=== PATIENT | male | born 1940 | race Caucasian/White ===

== ENCOUNTER 2018-09-11 12:28 | Emergency (ER) | payer MEDICARE, BC ==
[~2018-09-11] VITALS: Ht 180.3 cm; Wt 88.5 kg
[2018-09-11 13:21] LABS: BASOPHILS ABSOLUTE AUTO 0.04 K/mm3 (0.00-0.23); BASOPHILS PERCENT AUTO 1 % (0-2); EOSINOPHILS PERCENT AUTO 2 % (0-6); Hematocrit 40.4 % (37.0-53.0); Hemoglobin 13.4 g/dL (13.5-17.5); IMMATURE GRAN ABSOLUTE AUTO 0.01 K/mm3 (0.00-0.10); IMMATURE GRAN PERCENT AUTO 0 % (0-1); LYMPHOCYTES ABSOLUTE AUTO 1.61 K/mm3 (0.84-5.20); LYMPHOCYTES PERCENT AUTO 26 % (21-46); MONOCYTES ABSOLUTE AUTO 0.56 K/mm3 (0.16-1.47); MONOCYTES PERCENT AUTO 9 % (4-13); Mean Corpuscular HGB Conc 33.2 g/dL (31.5-36.5); Mean Corpuscular Volume 96 fL (80-100); Mean Platelet Volume 10.3 fL (9.1-12.4); NEUTROPHILS ABSOLUTE AUTO 3.82 K/mm3 (1.96-9.15); NEUTROPHILS PERCENT AUTO 62 % (41-73); Platelet Count 238 K/mm3 (150-400); RDW Coefficient Variation 14.3 % (11.7-14.2); RDW Standard Deviation 50.3 fL (35.1-46.3); Red Blood Cell Count 4.19 M/mm3 (4.30-5.90); White Blood Cell Count 6.14 K/mm3 (4.00-11.30)
[2018-09-11 13:42] LABS: Alanine Aminotransfer (ALT/SGP 21 U/L (12-78); Albumin, Blood 3.6 g/dL (3.4-5.0); Alk Phos 83 U/L (50-136); Anion Gap 9 mmol/L (6-16); Aspartate Aminotrans (AST/SGOT 24 U/L (12-37); Bilirubin, Total 0.5 mg/dL (0.1-1.0); Blood Urea Nitrogen 23 mg/dL (8-24); Bun/Creatinine Ratio 22.1 (12.0-20.0); CO2, Blood 24 mmol/L (21-32); Calcium, Blood 9.3 mg/dL (8.5-10.1); Chloride, Blood 108 mmol/L (98-108); Creatinine, Blood 1.04 mg/dL (0.60-1.20); Globulin, Blood 3.6 g/dL (2.2-4.0); Glomerular Filtration Rate >60 (60-); Glucose, Blood 107 mg/dL (70-99); Potassium, Blood 4.1 mmol/L (3.5-5.5); Sodium, Blood 141 mmol/L (136-145); Total Protein, Blood 7.2 g/dL (6.4-8.2); Troponin I <0.015 ng/mL (0.000-0.040)
[2018-09-11] MEDS ORDERED: MECL12.5 PO (16:30)
== END 2018-09-11 16:51 | disposition home or self-care (01) ==
LOC: ER 12:28
PROVIDERS: Emergency Medicine
DX: E87.8 Other disorders of electrolyte and fluid balance, not elsewhere classified (principal); Z88.8 Allergy status to other drugs, medicaments and biological substances
CPT/HCPCS: 36415; 70450; 80053; 84484; 85025; 93005; 93010; 99284-25

== ENCOUNTER 2024-01-26 06:43 | Day surgery (SDC) | payer BC, MEDICARE ==
[~2024-01-26] VITALS: Ht 170.2 cm; Wt 71.9 kg
[2024-01-26] VITALS (16 sets, daily range): BP systolic 89–159; BP diastolic 46–99
[~2024-01-26 06:43] MED LIST: DOXY100 PO; FLONASE ALLERG9.9 ML; MECL12.5 PO; PRED20 PO; ZYRTEC10 M2 PO
[2024-01-26] MEDS ORDERED: Lactated Ringer's 1,000 ML IV SCH ×2 (07:00→10:55)
[2024-01-26] MEDS ORDERED: Ropivacaine 0.5% HCl/Pf 123.125 MG,EPINEPHrine HCL 0.25 MG,Ketorolac Tromethamine 15 MG... INFIL SCH (07:00)
[2024-01-26] MEDS ORDERED: Chlorhexidine Mouth Care 15 ML UDC MT SCH (07:00)
[2024-01-26] MEDS ORDERED: Acetaminophen 500 MG Tab PO SCH ×2 (07:00→16:00)
[2024-01-26] MEDS ORDERED: OxyCODONE HCL 10 MG TABCR PO SCH (07:00)
[2024-01-26] MEDS ORDERED: CeFAZolin Sodium 2,000 MG in NS 100 ML IV SCH ×2 (07:00→17:00)
[2024-01-26] MEDS ORDERED: Tranexamic Acid 100 ML IV SCH (07:02)
--- NOTE | 2024-01-26 07:13 | NUR ---
Ambulatory in Day SurgeryPre-Op teaching done. Pt verbalizes understanding. History, Chart, Medications and Allergies reviewed before start of procedure.Patient confirms NPO status and agrees with scheduled surgery.
[2024-01-26] MEDS ORDERED: ASCORBIC ACID500 MG (07:35)
[2024-01-26] MEDS ORDERED: ADRENAL (07:36)
[2024-01-26] MEDS ORDERED: FentaNYL Citrate 50 MCG/ML 2 ML Injection ONE (08:32)
[2024-01-26] MEDS ORDERED: propofoL 150 ML IV ONE (08:34)
[2024-01-26] MEDS ORDERED: Phenylephrine HCl 100 MCG/ML-NS 10MLSYR (1MG/10ML) ONE (09:30)
[2024-01-26] MEDS ORDERED: Phenylephrine HCl 10mg/ml 1 ml Vial ONE (09:47)
[2024-01-26] MEDS ORDERED: Promethazine HCl 25 MG Tab PO PRN (10:50)
[2024-01-26] MEDS ORDERED: OxyCODONE HCL 5 MG TAB PO PRN ×2 (10:50→10:55)
[2024-01-26] MEDS ORDERED: Magnesium Hydroxide Conc 10 ML UDC PO PRN (10:55)
[2024-01-26] MEDS ORDERED: HYDROmorphone HCl/Pf 1MG SYR IV PRN (10:55)
[2024-01-26] MEDS ORDERED: Metoclopramide HCl 5MG / ML 2ML Vial IV PRN (10:55)
[2024-01-26] MEDS ORDERED: Ondansetron HCl 2 MG / ML 2ML Vial IV PRN (10:55)
[2024-01-26] MEDS ORDERED: Bisacodyl 10 MG Supp PR PRN (11:00)
[2024-01-26] MEDS ORDERED: DiphenhydrAMINE HCL 25 MG Cap PO PRN (11:00)
[2024-01-26] MEDS ORDERED: Ketorolac Tromethamine 15mg Vial IV SCH (12:00)
--- NOTE | 2024-01-26 12:22 | NUR ---
PT ARRIVED TO THE ROOM AT 1145. PT DENIES PAIN. PT IS UNABLE TO MOVE OR FEEL BLE R/T SPINAL ANESTHESIA. PULSES FAINT BUT PALPABLE. DRESSING C/D/I. FAMILY PRESENT FOR SUPPORT. PT PROVIDED WITH CALL LIGHT AND EDUCATED TO USE.
--- NOTE | 2024-01-26 18:32 | NUR ---
SHIFT SUMMARY PT IS POD#0. PT WORKED WITH THERAPY BUT DID NOT CLEAR, PT STATES HE WOULD LIKE TO DISCHARGE THIS EVENING, WAITING FOR REPLY FROM DR. OCONNELL REGARDING DISHCARGE. PAIN MANAGED WITH TYLENOL. PT TOLERATING PO AND HAS VOIDED. FAMILY PRESENT FOR SUPPORT.
--- NOTE | 2024-01-26 19:29 | NUR ---
PT IS REQUESTING TO DISCHARGE HOME AMA. DR. OCONNELL NOTIFIED OF PT'S WISH TO DISCHARGE HOME BUT ALSO THAT HE DID NOT CLEAR PHYSICAL THERAPY. DR. OCONNELL WOULD LIKE PT TO STAY AND HAVE FURTHER PHYSICAL THERAPY TOMORROW. THIS RN REQUESTED THAT DR. OCONNELL CALL PT AND PROVIDE INFORMED CONSENT REGARDINGS RISKS VS. BENEFITS OF AMA DISCHARGE. THIS RN PROVIDED EDUCATION THAT PT MAY HAVE INCREASED RISK OF FALLS AND WILL BE DISCHARGING HOME WITHOUT PROPER CARE INSTRUCTIONS SINCE THEY CANNOT BE PRINTED FOR AMA DISCHARGE. PT AND FAMILY VERBALIZED UNDERSTANDING. BEDSIDE REPORT GIVEN TO JESÚS ALFARO.
--- NOTE | 2024-01-26 19:37 | NUR ---
PT HAS DECIDED TO REMAIN OVERNIGHT IN THE HOSPITAL PER RECOMMENDATION FROM DR. OCONNELL.
[2024-01-26] MEDS ORDERED: Docusate Sodium 100 MG Cap PO SCH (21:00)
[2024-01-27 00:13] VITALS: BP 113/57
[2024-01-27 04:52] VITALS: BP 141/61
[2024-01-27 05:29] LABS: BASOPHILS ABSOLUTE AUTO 0.04 K/mm3 (0.00-0.23); BASOPHILS PERCENT AUTO 0 % (0-2); EOSINOPHILS ABSOLUTE AUTO 0.46 K/mm3 (0.00-0.68); EOSINOPHILS PERCENT AUTO 5 % (0-6); Hematocrit 33.1 % (37.0-53.0); Hemoglobin 10.9 g/dL (13.5-17.5); IMMATURE GRAN ABSOLUTE AUTO 0.01 K/mm3 (0.00-0.10); IMMATURE GRAN PERCENT AUTO 0 % (0-1); LYMPHOCYTES ABSOLUTE AUTO 2.01 K/mm3 (0.84-5.20); LYMPHOCYTES PERCENT AUTO 22 % (21-46); MONOCYTES ABSOLUTE AUTO 0.76 K/mm3 (0.16-1.47); MONOCYTES PERCENT AUTO 8 % (4-13); Mean Corpuscular HGB 31.7 pg (26.0-34.0); Mean Corpuscular HGB Conc 32.9 g/dL (31.5-36.5); Mean Corpuscular Volume 96 fL (80-100); Mean Platelet Volume 10.5 fL (9.1-12.4); NEUTROPHILS ABSOLUTE AUTO 5.79 K/mm3 (1.96-9.15); NEUTROPHILS PERCENT AUTO 64 % (41-73); Platelet Count 206 K/mm3 (150-400); RDW Coefficient Variation 14.2 % (11.7-14.2); RDW Standard Deviation 50.2 fL (35.1-46.3); Red Blood Cell Count 3.44 M/mm3 (4.30-5.90); White Blood Cell Count 9.07 K/mm3 (4.00-11.30)
--- NOTE | 2024-01-27 05:31 | NUR ---
SHIFT SUMMARY NOC. PT POD 1 FOR ELECTIVE RIGHT TOTAL KNEE. PT A/O X4. AQUACEL AND LA WRAP C/D/I. PT VOIDING URINE, TOLERATING PO. PT FAMILY AT BEDSIDE T/O THE NIGHT. PT DENIES PAIN AND TOOK SCHEDULED TYLENOL ORDERED. PT RESTED WITH EYES CLOSED AND CALL LIGHT IN REACH.
[2024-01-27 05:59] LABS: Calcium, Blood 8.7 mg/dL (8.5-10.1); Creatinine, Blood 1.36 mg/dL (0.60-1.20); Magnesium, Blood 2.1 mg/dL (1.6-2.4); Potassium, Blood 5.2 mmol/L (3.5-5.5)
[2024-01-27 07:22] VITALS: BP 142/65
[2024-01-27] MEDS ORDERED: ASPI81CH PO (07:40)
[2024-01-27] MEDS ORDERED: Aspirin 81 MG Chew PO SCH (09:00)
--- NOTE | 2024-01-27 10:53 | NUR ---
DISCHARGE SUMMARY POD1 R TKA, A/OX4, VSS, TOLERATING PO, DENIES PAIN, AMBULATES WELL WITH MINIMAL SBA, VOIDING INDEPENDENTLY, IV REMOVED JUST PRIOR TO DISCHARGE, JAMES C/D/I. DISCUSSED DISCHARGE INSTRUCTIONS WITH HIM AND HIS DAUGHTER INCLUDING HOME CARE, MEDICATIONS, AND FOLLOW UP APPOINTMENTS. NO QUESTIONS AT THIS TIME. PACKED UP ALL PERSONAL BELONGINGS AND ESCORTED OUT TO PRIVATE [employer] GO HOME.
== END 2024-01-27 10:46 | disposition home or self-care (01) ==
LOC: SURS 06:43 → ORSCMMR 06:43 → ORD 08:15 → SURS 10:01 → ORSCMMR 01-27 10:46
PROVIDERS: Orthopaedic Surgery
PROC: 0SRC0JA Replacement of Right Knee Joint with Synthetic Substitute, Uncemented, Open Approach (ICD-10-PCS; principal; 2024-01-26 08:15)
DX: M17.11 Unilateral primary osteoarthritis, right knee (principal)
CPT/HCPCS: 36415; 73560-RT; 80048; 83735; 85025; 97110; 97116; 97162; A9270; C1713; C1776; J0690; J2371; J2704; J3010; J7120

== ENCOUNTER 2025-02-23 21:55 | Inpatient (IN) | payer MEDICARE ==
[~2025-02-23] VITALS: Ht 177.8 cm; Wt 68.1 kg
[~2025-02-23 21:55] MED LIST changes: +ADRENAL; +ASCORBIC ACID500 MG; +ASPI81CH PO
[2025-02-23 22:30] LABS: BASOPHILS ABSOLUTE AUTO 0.03 K/mm3 (0.00-0.23); BASOPHILS PERCENT AUTO 0 % (0-2); EOSINOPHILS ABSOLUTE AUTO 0.00 K/mm3 (0.00-0.68); EOSINOPHILS PERCENT AUTO 0 % (0-6); Hematocrit 30.7 % (37.0-53.0); Hemoglobin 10.1 g/dL (13.5-17.5); IMMATURE GRAN ABSOLUTE AUTO 0.03 K/mm3 (0.00-0.10); IMMATURE GRAN PERCENT AUTO 0 % (0-1); LYMPHOCYTES ABSOLUTE AUTO 0.34 K/mm3 (0.84-5.20); LYMPHOCYTES PERCENT AUTO 5 % (21-46); MONOCYTES ABSOLUTE AUTO 0.68 K/mm3 (0.16-1.47); MONOCYTES PERCENT AUTO 10 % (4-13); Mean Corpuscular HGB Conc 32.9 g/dL (31.5-36.5); Mean Corpuscular Volume 95 fL (80-100); NEUTROPHILS ABSOLUTE AUTO 5.93 K/mm3 (1.96-9.15); NEUTROPHILS PERCENT AUTO 85 % (41-73); NRBC ABSOLUTE 0.00 K/mm3 (0.00-0.02); NRBC Auto 0.0 /100 WBC (0.0-0.2); Platelet Count 172 K/mm3 (150-400); RDW Coefficient Variation 14.8 % (11.7-14.2); RDW Standard Deviation 51.4 fL (35.1-46.3)
[2025-02-23 22:48] LABS: Alanine Aminotransfer (ALT/SGP 11.0 U/L (12-78); Albumin, Blood 2.9 g/dL (3.4-5.0); Albumin/Globulin Ratio 0.9 (0.8-1.8); Anion Gap 9.0 mmol/L (3-11); Aspartate Aminotrans (AST/SGOT 20.0 U/L (12-37); Bilirubin, Total 0.6 mg/dL (0.1-1.0); Blood Urea Nitrogen 26.0 mg/dL (8-24); CO2, Blood 24.0 mmol/L (21-32); Calcium, Blood 8.2 mg/dL (8.5-10.1); Chloride, Blood 106.0 mmol/L (98-108); Creatinine, Blood 1.55 mg/dL (0.60-1.20); Globulin, Blood 3.2 g/dL (2.2-4.0); Glucose, Blood 123.0 mg/dL (70-99); Potassium, Blood 4.2 mmol/L (3.5-5.5); Sodium, Blood 135.0 mmol/L (136-145); Total Protein, Blood 6.1 g/dL (6.4-8.2)
[2025-02-23] MEDS ORDERED: NS 1,000 ML IV SCH (23:20)
[2025-02-24 00:48] LABS: Source, Urine Voided
[2025-02-24 00:52] LABS: Bilirubin, Urine Neg (Neg); Glucose Qualitative, Urine Neg (Neg); Ketones, Urine 1+ (Neg); Leukocyte Esterase, Urine Neg (Neg); Protein, Urine 2+ (Neg); Specific Gravity, Urine 1.020 (1.003-1.022); Urobilinogen, Urine NORM (Normal)
[2025-02-24 01:07] LABS: Color, Urine Yellow (P-Yellow); White Blood Cells, Urine Not Seen /hpf (0-5)
[2025-02-24] MEDS ORDERED: CefTRIAXone Sodium 1,000 MG in NS 100 ML IV ONE (01:15)
[2025-02-24 01:29] LABS: Influenza A, PCR NEGATIVE (NEGATIVE); Influenza B, PCR NEGATIVE (NEGATIVE); Resp Syncytial Virus, PCR NEGATIVE (NEGATIVE); SARS-Cov-2 (COVID-19) PCR, MMC NEGATIVE (NEGATIVE)
[2025-02-24] MEDS ORDERED: NS 1,000 ML IV ONE (01:45)
[2025-02-24] MEDS ORDERED: Ondansetron HCl 2 MG / ML 2ML Vial IV PRN (01:45)
[2025-02-24 05:48] VITALS: BP 121/60
--- NOTE | 2025-02-24 06:38 | NUR ---
SHIFT SUMMARY: PATIENT ARRIVED FROM ER TODAY AROUND 0540. PATIENT IS A 1-2P ASSIST WITH AMBUATION DUE TO UNSTEADY GAIT FROM THE BATHROOM TO THE HOSPITAL BED. PATIENT IS A&OX4 BUT IS [place]. IS AT BEDSIDE CURRENTLY. SHEEP FARMER GAVI SAID PATIENT IS SINUS RHYTHM IN THE 70'S BPM. OTHER VITALS ARE STABLE AND IS ON ROOM AIR WITH >90% SPO2. PATIENT DENIES PAIN AT THIS TIME. PATIENT IS NPO WELL AT THIS TIME. HE IS CURRENTLY LAYING IN BED WITH CALL LIGHT IN REACH.
[2025-02-24 07:24] VITALS: BP 115/62
[2025-02-24 08:45] LABS: BASOPHILS ABSOLUTE AUTO 0.03 K/mm3 (0.00-0.23); BASOPHILS PERCENT AUTO 1 % (0-2); EOSINOPHILS ABSOLUTE AUTO 0.01 K/mm3 (0.00-0.68); EOSINOPHILS PERCENT AUTO 0 % (0-6); Hematocrit 33.0 % (37.0-53.0); Hemoglobin 10.9 g/dL (13.5-17.5); IMMATURE GRAN ABSOLUTE AUTO 0.01 K/mm3 (0.00-0.10); IMMATURE GRAN PERCENT AUTO 0 % (0-1); LYMPHOCYTES ABSOLUTE AUTO 0.61 K/mm3 (0.84-5.20); LYMPHOCYTES PERCENT AUTO 10 % (21-46); MONOCYTES ABSOLUTE AUTO 0.70 K/mm3 (0.16-1.47); MONOCYTES PERCENT AUTO 11 % (4-13); Mean Corpuscular HGB Conc 33.0 g/dL (31.5-36.5); Mean Corpuscular Volume 98 fL (80-100); NEUTROPHILS ABSOLUTE AUTO 4.90 K/mm3 (1.96-9.15); NEUTROPHILS PERCENT AUTO 78 % (41-73); NRBC ABSOLUTE 0.00 K/mm3 (0.00-0.02); NRBC Auto 0.0 /100 WBC (0.0-0.2); Platelet Count 168 K/mm3 (150-400); RDW Coefficient Variation 15.3 % (11.7-14.2); RDW Standard Deviation 55.1 fL (35.1-46.3)
[2025-02-24] MEDS ORDERED: Lactobacil 2-S.Thermo-Bifido 1 1 Cap PO SCH (09:00)
[2025-02-24] MEDS ORDERED: Enoxaparin 40 MG/0.4 ML SYR SC SCH (09:00)
[2025-02-24 09:10] LABS: Alanine Aminotransfer (ALT/SGP 12.0 U/L (12-78); Albumin, Blood 2.9 g/dL (3.4-5.0); Albumin/Globulin Ratio 0.8 (0.8-1.8); Anion Gap 9.0 mmol/L (3-11); Aspartate Aminotrans (AST/SGOT 22.0 U/L (12-37); Bilirubin, Total 0.5 mg/dL (0.1-1.0); Blood Urea Nitrogen 26.0 mg/dL (8-24); CO2, Blood 25.0 mmol/L (21-32); Calcium, Blood 8.3 mg/dL (8.5-10.1); Chloride, Blood 107.0 mmol/L (98-108); Creatinine, Blood 1.55 mg/dL (0.60-1.20); Globulin, Blood 3.5 g/dL (2.2-4.0); Glucose, Blood 92.0 mg/dL (70-99); Potassium, Blood 3.9 mmol/L (3.5-5.5); Sodium, Blood 137.0 mmol/L (136-145); Total Protein, Blood 6.4 g/dL (6.4-8.2)
[2025-02-24 14:58] VITALS: BP 117/56
[2025-02-24 17:04] LABS: Ferritin, Serum 351.0 ng/mL (26-388); Total Iron Binding Capacity 173.0 ug/dL (250-450)
[2025-02-24] MEDS ORDERED: NS 250 ML IV PRN (19:55)
[2025-02-24 20:03] VITALS: BP 123/54
[2025-02-24] MEDS ORDERED: CefTRIAXone Sodium 1,000 MG in NS 100 ML IV SCH (21:00)
[2025-02-24 21:54] VITALS: BP 132/74
[2025-02-24] MEDS ORDERED: Metoclopramide HCl 5MG / ML 2ML Vial IV PRN (22:20)
[2025-02-24 23:55] VITALS: BP 121/99
[2025-02-25 04:03] VITALS: BP 125/52
[2025-02-25 05:30] LABS: Hematocrit 28.2 % (37.0-53.0); Hemoglobin 9.5 g/dL (13.5-17.5); Mean Corpuscular HGB Conc 33.7 g/dL (31.5-36.5); Mean Corpuscular Volume 96 fL (80-100); NRBC ABSOLUTE 0.00 K/mm3 (0.00-0.02); NRBC Auto 0.0 /100 WBC (0.0-0.2); Platelet Count 152 K/mm3 (150-400); RDW Coefficient Variation 15.1 % (11.7-14.2); RDW Standard Deviation 53.1 fL (35.1-46.3)
--- NOTE | 2025-02-25 05:33 | NUR ---
NO ACUTE CHANGES WITH PATIENT DURING SHIFT. PATIENT IS ALERT AND ORIENTED X 4 AND ABLE TO MAKE NEEDS KNOWN. PATIENT RECEIEVED IV ANTIBIOTICS. PATIENT IS ON ROOM AIR AND ON TELE- RUNNING SINUS TACH WITH PAC'S. PATIENT IS A SBA TO THE BATHROOM. PATIENT COMPLAINED OF NAUSEA DURING SHIFT- ORDER FOR REGLAN WAS OBTAINED. PATIENT REQUESTED SOMETHING FOR SLEEP- 25 MG OF TRAZADONE WAS ORDERED. BED IS IN LOW POSITION WITH WHEELS LOCKED. CALL LIGHT WITHIN REACH
[2025-02-25 05:54] LABS: BAND PERCENT MAN 1 % (0-8); BASOPHILS ABSOLUTE MAN 0.00 K/mm3 (0.00-0.23); BASOPHILS PERCENT MAN 0 % (0-2); EOSINOPHILS ABSOLUTE MAN 0.00 K/mm3 (0.00-0.68); EOSINOPHILS PERCENT MAN 0 % (0-6); LYMPHOCYTES ABSOLUTE MAN 0.84 K/mm3 (0.84-5.20); LYMPHOCYTES PERCENT MAN 19 % (21-46); MONOCYTES ABSOLUTE MAN 0.93 K/mm3 (0.16-1.47); MONOCYTES PERCENT MAN 21 % (4-13); NEUTROPHILS ABSOLUTE MAN 2.65 K/mm3 (1.96-9.15); SEG NEUTROPHILS PERCENT MAN 59 % (41-73)
[2025-02-25 06:12] LABS: Anion Gap 7.0 mmol/L (3-11); Blood Urea Nitrogen 37.0 mg/dL (8-24); CO2, Blood 25.0 mmol/L (21-32); Calcium, Blood 8.2 mg/dL (8.5-10.1); Chloride, Blood 106.0 mmol/L (98-108); Creatinine, Blood 1.55 mg/dL (0.60-1.20); Glucose, Blood 116.0 mg/dL (70-99); Potassium, Blood 4.3 mmol/L (3.5-5.5); Sodium, Blood 134.0 mmol/L (136-145)
[2025-02-25 07:40] VITALS: BP 112/55
[2025-02-25] MEDS ORDERED: Sod Ferric Gluc Complx/Sucrose 125 MG in NS 100 ML IV SCH (09:38)
[2025-02-25 11:55] VITALS: BP 125/61
[2025-02-25] MEDS ORDERED: AZIT250 PO (13:48)
[2025-02-25] MEDS ORDERED: CEFP200 PO (13:49)
[2025-02-25] MEDS ORDERED: FERSU300 PO (13:50)
[2025-02-25] MEDS ORDERED: VISBIOME 112.51 EACH PO (13:50)
[2025-02-25] MEDS ORDERED: ONDA4ODT MM (13:52)
--- NOTE | 2025-02-25 14:14 | NUR ---
DSICHARGE INSTRUCTIONS TO PATIENT AND , BOTH STATED UNDERSTANDING, BOTH DENIED FURTHER QUESTIONS FOR DISCHARGE NEEDS OR INSTRUCTIONS, PLEASANT TO CARE
== END 2025-02-25 14:19 | disposition home or self-care (01) | DRG 193 ==
LOC: ER 21:55 → ERHOLD 21:56 → ER 21:56 → ERHOLD 21:56 → MEDS 21:56 → ERHOLD 21:57 → MEDS 02-24 05:27
PROVIDERS: Emergency Medicine; Student in an Organized Health Care Education/Training Program; ADMIT Internal Medicine
DX: J18.9 Pneumonia, unspecified organism (principal); I21.4 Non-ST elevation (NSTEMI) myocardial infarction; N18.32 Chronic kidney disease, stage 3b; R63.4 Abnormal weight loss; I08.3 Combined rheumatic disorders of mitral, aortic and tricuspid valves; I27.20 Pulmonary hypertension, unspecified; D50.9 Iron deficiency anemia, unspecified; J84.10 Pulmonary fibrosis, unspecified; R79.89 Other specified abnormal findings of blood chemistry; Z79.82 Long term (current) use of aspirin; Z68.23 Body mass index [BMI] 23.0-23.9, adult
CPT/HCPCS: 36415; 71045; 80048; 80053; 81001; 82607; 82728; 82746; 83540; 83550; 83605; 83880; 84484; 85025; 87040; 87637; 92610; 93005; 93010; 93306; 94664; 96361; 96374; 96375; 99285-25; A9270; G0378; J0456; J0696; J1650; J2405; J2765; J2916; J7030; J7050

== ENCOUNTER → 2025-03-10 | Outpatient (CLI) | payer MEDICARE ==
[~2025-03-10] MED LIST changes: +AZIT250 PO; +CEFP200 PO; +FERSU300 PO; +ONDA4ODT MM; +VISBIOME 112.51 EACH PO
[2025-03-10 12:50] LABS: BASOPHILS ABSOLUTE AUTO 0.04 K/mm3 (0.00-0.23); BASOPHILS PERCENT AUTO 0 % (0-2); EOSINOPHILS ABSOLUTE AUTO 0.04 K/mm3 (0.00-0.68); EOSINOPHILS PERCENT AUTO 0 % (0-6); Hematocrit 34.5 % (37.0-53.0); Hemoglobin 11.4 g/dL (13.5-17.5); IMMATURE GRAN ABSOLUTE AUTO 0.05 K/mm3 (0.00-0.10); IMMATURE GRAN PERCENT AUTO 1 % (0-1); LYMPHOCYTES ABSOLUTE AUTO 1.57 K/mm3 (0.84-5.20); LYMPHOCYTES PERCENT AUTO 17 % (21-46); MONOCYTES ABSOLUTE AUTO 0.80 K/mm3 (0.16-1.47); MONOCYTES PERCENT AUTO 9 % (4-13); Mean Corpuscular HGB Conc 33.0 g/dL (31.5-36.5); Mean Corpuscular Volume 99 fL (80-100); NEUTROPHILS ABSOLUTE AUTO 6.55 K/mm3 (1.96-9.15); NEUTROPHILS PERCENT AUTO 73 % (41-73); NRBC ABSOLUTE 0.04 K/mm3 (0.00-0.02); NRBC Auto 0.4 /100 WBC (0.0-0.2); Platelet Count 240 K/mm3 (150-400); RDW Coefficient Variation 19.7 % (11.7-14.2); RDW Standard Deviation 67.9 fL (35.1-46.3)
[2025-03-10 13:01] LABS: Alanine Aminotransfer (ALT/SGP 68.0 U/L (12-78); Albumin, Blood 3.4 g/dL (3.4-5.0); Albumin/Globulin Ratio 1.0 (0.8-1.8); Anion Gap 14.0 mmol/L (3-11); Aspartate Aminotrans (AST/SGOT 77.0 U/L (12-37); Bilirubin, Total 1.5 mg/dL (0.1-1.0); Blood Urea Nitrogen 39.0 mg/dL (8-24); CO2, Blood 25.0 mmol/L (21-32); Calcium, Blood 8.8 mg/dL (8.5-10.1); Chloride, Blood 104.0 mmol/L (98-108); Creatinine, Blood 1.98 mg/dL (0.60-1.20); Globulin, Blood 3.4 g/dL (2.2-4.0); Glucose, Blood 95.0 mg/dL (70-99); Potassium, Blood 4.3 mmol/L (3.5-5.5); Sodium, Blood 139.0 mmol/L (136-145); Total Protein, Blood 6.8 g/dL (6.4-8.2)
== END | disposition home or self-care (01) ==
LOC: LAB SHORT 12:44 → LAB 12:44
PROVIDERS: Physician Assistant
DX: R11.2 Nausea with vomiting, unspecified (principal); R10.9 Unspecified abdominal pain; R74.8 Abnormal levels of other serum enzymes
CPT/HCPCS: 80053; 82977; 83690; 85025

== ENCOUNTER 2025-03-17 17:20 | Observation (INO) | payer MEDICARE ==
[~2025-03-17] VITALS: Ht 172.7 cm; Wt 69.3 kg
[~2025-03-17 17:20] MED LIST changes: -FURO20 PO; -MAGNESIUM OXID500 MG PO; -PANTOPRAZOLE SO40 M2 PO; -POTA10T PO; -PROBIOTIC1 EA13 PO; -TRAZ50 PO
[2025-03-17] MEDS ORDERED: PANTOPRAZOLE SO40 M2 PO (22:26)
[2025-03-17] MEDS ORDERED: TRAZ50 PO (22:26)
[2025-03-17] MEDS ORDERED: FLU VACC TS2025(65UP)/MF59C/PF 45 MCG/0.5 ML SYRINGE IM SCH (22:30)
[2025-03-17] MEDS ORDERED: Furosemide 10 MG / ML 2ML Vial IV SCH (23:00)
[2025-03-18 00:45] VITALS: BP 121/102
[2025-03-18] MEDS ORDERED: PROBIOTIC1 EA13 PO (00:59)
[2025-03-18 04:30] VITALS: BP 130/77
--- NOTE | 2025-03-18 05:02 | NUR ---
PT ADMITTED DURING SHIFT. PATIENT ALERT AND ORIENTED X4 BUT HAS INTERMITTENT FORGETFULNESS. PATIENT IS UP WITH 1 ASSIST WITH A CANE. PATIENT ABLE TO SWALLOW TO PILLS WHOLE. PATIENT ON TELE RUNNING NSR. CONTINUOUS PULSE OX IN PLACE. PT ON ROOM AIR. MALE PURWICK PUT ON PATIENT DUE TO BEING GIVEN IV LASIX AND THE FREQUENCY OF VOIDING WHILE TRYING TO REST. PATIENT ALSO REQUEST HIS HOME MED- 50 MG TRAZADONE. RN CALLED DR. VITAL AND DR DENNIS RICHARD TO ORDER AND GIVE TRAZADONE. BED IN LOW POSITION WITH WHEELS LOCKED. CALL LIGHT WITHIN REACH AND DAUGHTER AT BEDSIDE
[2025-03-18 05:35] LABS: BASOPHILS ABSOLUTE AUTO 0.04 K/mm3 (0.00-0.23); BASOPHILS PERCENT AUTO 1 % (0-2); EOSINOPHILS ABSOLUTE AUTO 0.08 K/mm3 (0.00-0.68); EOSINOPHILS PERCENT AUTO 1 % (0-6); Hematocrit 38.5 % (37.0-53.0); Hemoglobin 12.6 g/dL (13.5-17.5); IMMATURE GRAN ABSOLUTE AUTO 0.02 K/mm3 (0.00-0.10); IMMATURE GRAN PERCENT AUTO 0 % (0-1); LYMPHOCYTES ABSOLUTE AUTO 1.42 K/mm3 (0.84-5.20); LYMPHOCYTES PERCENT AUTO 22 % (21-46); MONOCYTES ABSOLUTE AUTO 0.61 K/mm3 (0.16-1.47); MONOCYTES PERCENT AUTO 9 % (4-13); Mean Corpuscular HGB Conc 32.7 g/dL (31.5-36.5); Mean Corpuscular Volume 101 fL (80-100); NEUTROPHILS ABSOLUTE AUTO 4.37 K/mm3 (1.96-9.15); NEUTROPHILS PERCENT AUTO 67 % (41-73); NRBC ABSOLUTE 0.03 K/mm3 (0.00-0.02); NRBC Auto 0.5 /100 WBC (0.0-0.2); Platelet Count 149 K/mm3 (150-400); RDW Coefficient Variation 22.5 % (11.7-14.2); RDW Standard Deviation 82.3 fL (35.1-46.3)
[2025-03-18 06:32] LABS: Alanine Aminotransfer (ALT/SGP 75.0 U/L (12-78); Albumin, Blood 3.2 g/dL (3.4-5.0); Albumin/Globulin Ratio 1.0 (0.8-1.8); Anion Gap 12.0 mmol/L (3-11); Aspartate Aminotrans (AST/SGOT 54.0 U/L (12-37); Bilirubin, Total 1.3 mg/dL (0.1-1.0); Blood Urea Nitrogen 35.0 mg/dL (8-24); CO2, Blood 22.0 mmol/L (21-32); Calcium, Blood 8.5 mg/dL (8.5-10.1); Chloride, Blood 108.0 mmol/L (98-108); Creatinine, Blood 1.43 mg/dL (0.60-1.20); Globulin, Blood 3.1 g/dL (2.2-4.0); Glucose, Blood 101.0 mg/dL (70-99); Magnesium, Blood 1.9 mg/dL (1.6-2.4); Potassium, Blood 3.8 mmol/L (3.5-5.5); Sodium, Blood 138.0 mmol/L (136-145); Total Protein, Blood 6.3 g/dL (6.4-8.2)
[2025-03-18 07:54] VITALS: BP 130/81
[2025-03-18 08:37] LABS: Ferritin, Serum 329.0 ng/mL (26-388); Total Iron Binding Capacity 250.0 ug/dL (250-450)
[2025-03-18] MEDS ORDERED: Enoxaparin 40 MG/0.4 ML SYR SC SCH (09:00)
[2025-03-18 10:35] LABS: Prothrombin Time Results 13.4 Sec (9.7-11.5)
[2025-03-18] MEDS ORDERED: Furosemide 10 MG / ML 2ML Vial IV ONE (14:49)
[2025-03-18 15:37] VITALS: BP 119/55
--- NOTE | 2025-03-18 18:09 | NUR ---
PATIENT HAD VENOUS DUPLEX PERFORMED, DR SUNG CALLED WITH RESULTS. NUC MED STUDY PERFORMED. DR SUNG OKAYED CPAP AND SCD'S. PUREWICK IN PLACE AND LASIX GIVEN PER AUG. A/O X4, ABLE TO MAKE NEEDS KNOWN. SOMEWHAT UNSTEADY WITH AMBULATING SHORT DISTANCES. LUNGS CLEAR BUT DIMINISHED. THORACENTESIS TO BE PERFOMED TOMORROW DUE TO STAFF AVAILABILITY. TELE IN PLACE. CONTINUES ON 2 LITERS NC WITH PULSE OX IN PLACE.
[2025-03-18 19:37] VITALS: BP 129/59
[2025-03-19 00:15] VITALS: BP 126/59
--- NOTE | 2025-03-19 00:38 | NUR ---
PT REQUEST SOMETHING TO HELP WITH SLEEP- 5 MG OF MELATONIN ORDER PRN AT BEDTIME PER DR. VITAL
--- NOTE | 2025-03-19 04:09 | NUR ---
NO ACUTE CHANGES DURING SHIFT. PATIENT ALERT AND ORIENTED X4 WITH INTERMITTENT FORGETFULNESS. PATIENT ABLE TO TURN SELF IN BED WITH MINIMAL ASSIST. PURWICK IN PLACE. ON 2 L NC AND CONTINUOUS PULSE OX. PATIENT ON TELE RUNNING NSR. FEET ELEVATED WITH PILLOW SUPPORTS. BED IN LOW POSITION WITH WHEELS LOCKED. CALL LIGHT WITHIN REACH.
[2025-03-19 07:39] VITALS: BP 128/59
[2025-03-19 08:08] LABS: BASOPHILS ABSOLUTE AUTO 0.03 K/mm3 (0.00-0.23); BASOPHILS PERCENT AUTO 0 % (0-2); EOSINOPHILS ABSOLUTE AUTO 0.19 K/mm3 (0.00-0.68); EOSINOPHILS PERCENT AUTO 3 % (0-6); Hematocrit 37.2 % (37.0-53.0); Hemoglobin 12.4 g/dL (13.5-17.5); IMMATURE GRAN ABSOLUTE AUTO 0.03 K/mm3 (0.00-0.10); IMMATURE GRAN PERCENT AUTO 0 % (0-1); LYMPHOCYTES ABSOLUTE AUTO 1.56 K/mm3 (0.84-5.20); LYMPHOCYTES PERCENT AUTO 20 % (21-46); MONOCYTES ABSOLUTE AUTO 0.68 K/mm3 (0.16-1.47); MONOCYTES PERCENT AUTO 9 % (4-13); Mean Corpuscular HGB Conc 33.3 g/dL (31.5-36.5); Mean Corpuscular Volume 100 fL (80-100); NEUTROPHILS ABSOLUTE AUTO 5.17 K/mm3 (1.96-9.15); NEUTROPHILS PERCENT AUTO 67 % (41-73); NRBC ABSOLUTE 0.00 K/mm3 (0.00-0.02); NRBC Auto 0.0 /100 WBC (0.0-0.2); Platelet Count 150 K/mm3 (150-400); RDW Coefficient Variation 22.0 % (11.7-14.2); RDW Standard Deviation 78.7 fL (35.1-46.3)
[2025-03-19 08:31] LABS: Alanine Aminotransfer (ALT/SGP 58.0 U/L (12-78); Albumin, Blood 2.8 g/dL (3.4-5.0); Albumin/Globulin Ratio 0.9 (0.8-1.8); Anion Gap 10.0 mmol/L (3-11); Aspartate Aminotrans (AST/SGOT 44.0 U/L (12-37); Bilirubin, Total 1.1 mg/dL (0.1-1.0); Blood Urea Nitrogen 35.0 mg/dL (8-24); CO2, Blood 26.0 mmol/L (21-32); Calcium, Blood 8.0 mg/dL (8.5-10.1); Chloride, Blood 105.0 mmol/L (98-108); Creatinine, Blood 1.57 mg/dL (0.60-1.20); Globulin, Blood 3.0 g/dL (2.2-4.0); Glucose, Blood 92.0 mg/dL (70-99); Magnesium, Blood 1.8 mg/dL (1.6-2.4); Potassium, Blood 3.5 mmol/L (3.5-5.5); Sodium, Blood 137.0 mmol/L (136-145); Total Protein, Blood 5.8 g/dL (6.4-8.2)
--- NOTE | 2025-03-19 14:15 | NUR ---
PATIENT OFF FLOOR FOR PROCEDURE
[2025-03-19] MEDS ORDERED: FURO20 PO (14:37)
[2025-03-19] MEDS ORDERED: POTA10T PO (14:37)
[2025-03-19] MEDS ORDERED: MAGNESIUM OXID500 MG PO (14:37)
[2025-03-19 14:44] VITALS: BP 123/50
--- NOTE | 2025-03-19 14:44 | NUR ---
CONTACTED DR SUNG, PATIENT IS NOT ABLE TO FILL DISCHARGE MEDS TODAY IT IS THURSDAY. DR SUNG OKAYED ONE TIME DOSE FOR LASIX AND POTASSIUM. WALKER DELIVERED TO ROOM BY CM. OXYGEN WILL BE PICKED UP BY FAMILY PRIVATE PAY.
[2025-03-19 14:49] LABS: Automated BF WBC Count 0.069 K/mm3 (0-999)
[2025-03-19] MEDS ORDERED: Potassium Chloride 10 Meq Tablet SA PO ONE (14:50)
[2025-03-19 15:02] LABS: RBC Count, Body Fluid 1 /mm3 (0-0)
[2025-03-19 15:04] LABS: Color, Body Fluid Yellow (None-Yellow)
[2025-03-19 15:07] LABS: Albumin, Body Fluid 1.1 g/dL; Glucose, Body Fluid 121 mg/dL; Lactate Dehydrogenase, Body Fl 76 U/L
[2025-03-19 16:12] LABS: Lymphocytes, Fluid 18.0 % (0.0-18.0); Monocytes/Mononuclear, Fluid 78.0 % (0.0-50.0); Neutrophils, Fluid 4.0 % (0.0-25.0); Total Cell Count, Body Fluid 100
--- NOTE | 2025-03-19 16:30 | NUR ---
SHIFT SUMMARY PATIENT DISCHARGED HOME WITH FAMILY TO DRIVE. SCRIPT FOR O2 SENT WITH . WALKER WAS DELIVERED TO ROOM PER CM. HOME HEALTH SET TO MAKE CONTACT BY THURSDAY. BANDAID TO BACK AT THORACENTESIS SITE, PINPOINT SHADOWING PRESENT, VSS AND LUNG SOUNDS CLEARED AFTER PROCEDURE. DISCHARGE PACKET GIVEN AND REVIEWED, QUESTIONS ANSWERED, VERBALIZED UNDERSTANDING. IV REMOVED WITHOUT COMPLICATION.
== END 2025-03-19 16:29 | disposition home health service (06) ==
LOC: ER 17:20 → MEDS 17:21 → ERHOLD 17:21 → MEDS 03-18 00:29 → ERHOLD 03-18 00:29 → MEDS 03-18 21:53
PROVIDERS: Student in an Organized Health Care Education/Training Program; ADMIT Student in an Organized Health Care Education/Training Program
DX: I35.0 Nonrheumatic aortic (valve) stenosis (principal); J90 Pleural effusion, not elsewhere classified; J96.01 Acute respiratory failure with hypoxia; I27.20 Pulmonary hypertension, unspecified; J43.2 Centrilobular emphysema; E86.1 Hypovolemia; D63.1 Anemia in chronic kidney disease; I50.9 Heart failure, unspecified; N18.32 Chronic kidney disease, stage 3b
CPT/HCPCS: 32555; 36415; 71045; 71046; 71260; 78580; 80053; 82042; 82607; 82728; 82746; 82945; 83540; 83550; 83615; 83735; 83880; 84145; 84157; 84484; 85025; 85379; 85610; 85730; 87070; 87075; 87205; 88108; 88305; 89051; 93005; 93010; 93970; 94761; 94762; 96374; 96376; 99285-25; A9270; A9540; G0378; J1650; J1938; Q9967

== ENCOUNTER → 2025-03-17 | Outpatient (CLI) | payer MEDICARE ==
[~2025-03-17] MED LIST changes: +FURO20 PO; +MAGNESIUM OXID500 MG PO; +PANTOPRAZOLE SO40 M2 PO; +POTA10T PO; +PROBIOTIC1 EA13 PO; +TRAZ50 PO
[2025-03-17 13:23] LABS: BASOPHILS ABSOLUTE AUTO 0.03 K/mm3 (0.00-0.23); BASOPHILS PERCENT AUTO 1 % (0-2); EOSINOPHILS ABSOLUTE AUTO 0.08 K/mm3 (0.00-0.68); EOSINOPHILS PERCENT AUTO 1 % (0-6); Hematocrit 35.8 % (37.0-53.0); Hemoglobin 11.7 g/dL (13.5-17.5); IMMATURE GRAN ABSOLUTE AUTO 0.16 K/mm3 (0.00-0.10); IMMATURE GRAN PERCENT AUTO 3 % (0-1); LYMPHOCYTES ABSOLUTE AUTO 1.10 K/mm3 (0.84-5.20); LYMPHOCYTES PERCENT AUTO 17 % (21-46); MONOCYTES ABSOLUTE AUTO 0.50 K/mm3 (0.16-1.47); MONOCYTES PERCENT AUTO 8 % (4-13); Mean Corpuscular HGB Conc 32.7 g/dL (31.5-36.5); Mean Corpuscular Volume 101 fL (80-100); NEUTROPHILS ABSOLUTE AUTO 4.60 K/mm3 (1.96-9.15); NEUTROPHILS PERCENT AUTO 71 % (41-73); NRBC ABSOLUTE 0.03 K/mm3 (0.00-0.02); NRBC Auto 0.5 /100 WBC (0.0-0.2); Platelet Count 149 K/mm3 (150-400); RDW Coefficient Variation 22.5 % (11.7-14.2); RDW Standard Deviation 80.7 fL (35.1-46.3)
[2025-03-17 13:35] LABS: Alanine Aminotransfer (ALT/SGP 79.0 U/L (12-78); Albumin, Blood 3.1 g/dL (3.4-5.0); Albumin/Globulin Ratio 1.0 (0.8-1.8); Anion Gap 16.0 mmol/L (3-11); Aspartate Aminotrans (AST/SGOT 61.0 U/L (12-37); Bilirubin, Total 1.2 mg/dL (0.1-1.0); Blood Urea Nitrogen 37.0 mg/dL (8-24); CO2, Blood 23.0 mmol/L (21-32); Calcium, Blood 8.6 mg/dL (8.5-10.1); Chloride, Blood 107.0 mmol/L (98-108); Creatinine, Blood 1.64 mg/dL (0.60-1.20); Globulin, Blood 3.1 g/dL (2.2-4.0); Glucose, Blood 95.0 mg/dL (70-99); Potassium, Blood 4.1 mmol/L (3.5-5.5); Sodium, Blood 142.0 mmol/L (136-145); Total Protein, Blood 6.2 g/dL (6.4-8.2)
== END ==
LOC: LAB 13:08 → LAB SHORT 13:08
DX: R06.02 Shortness of breath (principal)
CPT/HCPCS: 80053; 83880; 84484; 85025

== ENCOUNTER → 2025-05-10 | Outpatient (CLI) | payer MEDICARE | END | disposition home or self-care (01) | LOC: LAB 09:00 | DX: D63.8 Anemia in other chronic diseases classified elsewhere (principal) ==